=== PATIENT | male | born 1975 | race Caucasian/White ===

== ENCOUNTER 2019-05-04 11:45 | Outpatient (REF) | payer MEDICARE, MEDICAID, SELFPAY ==
[2019-05-04 20:33] LABS: HCT 55.3 % (40.0-50.0); Mean Corp. HGB Concentration 35.1 g/dL (32.0-36.0); Mean Corpuscular Hemoglobin 34.2 pg (27.0-33.0); Mean Corpuscular Volume 97.4 fL (80-95); Mean Platelet Volume 11.3 fL (8.0-11.0); Platelet Count 195 x1000/uL (130-400); RBC 5.68 m/cumm (4.50-6.00); RBC Distribution Width 14.2 % (11.8-14.1); White Blood Cell Count 9.32 k/cumm (4.4-10.8)
[2019-05-04 20:34] LABS: Iron 85 ug/dL (50-175); Total Iron Binding Capacity 294 ug/dL (250-450); Transferrin Sat 29 % (20-55)
[2019-05-04 20:48] LABS: ALT 32 U/L (12-78); AST 21 U/L (15-37); Albumin 3.8 g/dL (3.4-5.0); Alkaline Phosphatase 139 U/L (46-116); Anion Gap 13.5 mmol/L (3-11); BUN 8 mg/dL (7-18); Bilirubin, Total 0.3 mg/dL (0.2-1.0); CO2 21.5 mmol/L (21.0-32.0); CREATININE 1.11 mg/dL (0.70-1.30); Calcium 8.9 mg/dL (8.5-10.1); Calculated LDL 81 mg/dL; Chloride 104 mmol/L (98-107); Cholesterol 153 mg/dL (50-200); Ferritin 96 ng/mL (8-388); Glucose 82 mg/dL (70-100); HDL Cholesterol 29 mg/dL (40-60); Potassium 4.6 mmol/L (3.5-5.1); Sodium 139 mmol/L (136-145); Total Protein 7.6 g/dL (6.4-8.2); Triglyceride 217 mg/dL (30-150)
[2019-05-04 21:43] LABS: HGB 19.4 g/dL (13.5-17.5)
== END 2019-05-04 12:05 ==
LOC: NCHCN 11:45
PROVIDERS: PCP Internal Medicine; Visit Provider Nurse Practitioner Family
DX: I10 Essential (primary) hypertension (principal); E78.5 Hyperlipidemia, unspecified; R79.0 Abnormal level of blood mineral
CPT/HCPCS: 80053; 80061; 83721; 85027; 82728; 83540; 83550

== ENCOUNTER 2020-11-13 14:10 | Outpatient (REF) | payer MEDICARE, MEDICAID, SELFPAY ==
[2020-11-13 16:08] LABS: Abs Immature Grans 0.02 10^3/uL (0.0-0.06); Absolute Basophil Count 0.07 10^3/uL (0.0-0.2); Absolute Eosinophil Count 0.13 10^3/uL (0.0-0.7); Absolute Monocyte Count 0.62 10^3/uL (0.1-0.8); Basophils % 0.8; Eosinophils % 1.5; HCT 54.9 % (40.0-50.0); Immature Grans % 0.2; Lymphocytes % 35.8; MCH 34.4 pg (27.0-33.0); MCV 98.4 fL (80-95); MPV 10.5 fL (8.0-11.0); Monocytes % 6.9; Neutrophils % 54.8; Nucleated RBC 0 %; Platelet Count 207 10^3/uL (130-400); RBC 5.58 10^6/uL (4.36-5.78); RDW 13.3 % (11.8-14.1); RDW-SD 48.4 fL; WBC 8.94 10^3/uL (4.4-10.8)
[2020-11-13 16:18] LABS: HGB 19.2 g/dL (13.5-17.5)
[2020-11-13 16:28] LABS: TSH (W/Ref FT4) 3.62 uIU/mL (0.36-3.74)
[2020-11-13 16:39] LABS: COMMENT (LAB VIEW ONLY) 125.99 mg/dL; Microalb ug/mg Crea 36.1 ug/mg Cr
[2020-11-13 17:24] LABS: Hemoglobin A1C 6.3 % (<5.7)
== END 2020-11-13 14:11 | disposition home or self-care (01) ==
LOC: NCHCN 14:10
PROVIDERS: PCP Internal Medicine; Visit Provider Physician Assistant
DX: R73.03 Prediabetes (principal); D75.1 Secondary polycythemia; F25.0 Schizoaffective disorder, bipolar type; I10 Essential (primary) hypertension
CPT/HCPCS: 82043; 82570; 83036; 84443; 85025